=== PATIENT | female | born 1965 | race Caucasian/White ===

== ENCOUNTER 2016-08-19 06:30 | Observation (INO) | payer OTHER ==
--- NOTE | ~2016-08-19 | HP ---
History And Physical [id number] [facility] [place]. [address] NAME: ROSAURA CAMPOS : 67 STATUS : DIS Gertrudis PAT#: [id number] AGE: 50 ADM/REG DATE : 08/19/16 MR#: [id number] REPORT SERV DATE: 08/19/16 DICTATED BY: JAY JAY PEREZ DATE: 08/19/16 REPORT STATUS : Draft TRANSCRIBED BY: MODLaura DATE: 08/19/16 DATE OF ADMISSION: 08/19/2016 PRIMARY CARE PROVIDER: In [place]. CHIEF COMPLAINT: One episode of chest pain upon awakening, lasting less than 1 minute. HISTORY OF PRESENT ILLNESS: This is a pleasant 50-year-old white female with a history of high blood pressure. She also has hypothyroidism that is reportedly well controlled with repletion. She reports she recently had thyroid levels checked and they were within normal limits. 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 She is also relocating houses for this and her mother is in hospice here in [place]. She awakened this morning, and she felt that she awakened from chest pain. She reports that as soon as she realized she had chest pain, it had resolved within 1 minute. She decided to go to the emergency department for evaluation. She has had no recurrence of chest pain. She has never had any chest pain or dyspnea with exertion. She is very active with spinning class, exercise, etc, and she last was in spinning class yesterday with no symptoms. PAST MEDICAL HISTORY: 1. Hypertension. 2. Exercise-induced asthma. 3. Allergies. 4. Hypothyroidism. SOCIAL HISTORY: . 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 Her mother is in hospice in [place] and she is here visiting. Denies any tobacco. Rare glass of wine. Diet sodas occasionally. She walks for exercise and also participates in spinning class multiple times per week with no symptoms. FAMILY HISTORY: Mother with hypertension only. Maternal uncle with stents at the age of 65. ALLERGIES: LEVOFLOXACIN, REACTION UNKNOWN. HOME MEDICATIONS: List reviewed and is as follows: 1. Montelukast 10 mg p.o. daily. 2. Losartan 100 mg p.o. daily. 3. Levothyroxine 137 mcg p.o. daily. 4. Liothyronine 10 mcg p.o. daily. 5. Albuterol two puffs inhaled p.r.n. REVIEW OF SYSTEMS: The patient denies ever having a cardiac evaluation. As above per HPI, all other systems reviewed and negative. PHYSICAL EXAMINATION: History And Physical [address] [address] NAME: ROSAURA CAMPOS : 67 STATUS : DIS Gertrudis PAT#: [id number] AGE: 50 ADM/REG DATE : 08/19/16 MR#: [id number] REPORT SERV DATE: 08/19/16 DICTATED BY: JAY JAY PEREZ DATE: 08/19/16 REPORT STATUS : Draft TRANSCRIBED BY: ARACELI DATE: 08/19/16 VITAL SIGNS: Temperature 98.1, pulse 68, respiratory rate 16, blood pressure 159/99. GENERAL: Well developed, well nourished. In no apparent distress. HEENT: Head normocephalic. No xanthelasma. Sclera clear, anicteric. Moist mucous membranes without pallor. No lymphadenopathy. No deficits noted. NECK: Trachea midline. Supple. No thyromegaly, JVD, or bruits. RESPIRATORY: Unlabored respirations. Breath sounds clear bilaterally to posterior auscultation. No wheezes, rhonchi or crackles. CARDIOVASCULAR: Regular rate and rhythm. No murmur, rub, or gallop appreciated. No chest wall tenderness to palpation. ABDOMEN: Soft, nontender, and nondistended. Active bowel sounds auscultated x4 quadrants. No organomegaly and no masses. No aortic bruit. EXTREMITIES: DP/PT and radial pulses 2+ bilaterally. No clubbing, cyanosis, or edema. SKIN: Warm, dry, intact. No rash. Normal turgor. MUSCULOSKELETAL: Moves all extremities in bed without difficulty. NEURO/PSYCH: Alert and oriented x3 with no acute distress. Affect appropriate to current situation. LABORATORY DATA: BMP: Sodium 143, potassium 3.7, creatinine 0.88, glucose 97, magnesium 2.3. CBC: White blood cell count 5.5, hemoglobin 13.5, hematocrit 40.1, platelets 251. Troponin 0.05 x2. D-dimer is 0.36. TSH 2.66. STUDIES: 1. Chest x-ray, no acute processes. 2. EKG, personally interpreted, normal sinus rhythm, with no ischemia. 3. Telemetry, sinus rhythm. ASSESSMENT AND PLAN: 1. Substernal chest pain. This lasted less than 1 minute in duration this morning and occurred at rest. This is atypical in feature. No exertional component. Troponin 0.05 x2. EKG was benign. I performed a stress echocardiogram today given cardiac risk factors of high blood pressure. This was considered to be a low-risk vasodilator stress test and there was no ischemia. Therefore, the patient will be discharged to home with followup with her primary care provider in [place] in one to two weeks. 2. Hypertension. I advised her to monitor her blood pressure daily, record, and take it to her primary care provider. 3. Situational stress. This is noted given the patient's mother in hospice and moving and other situational issues. The patient is encouraged to continue her positive stress reduction-techniques including exercise. 4. Hypothyroidism. This is reportedly normal. TSH here was fine. Therefore, she will be continued on current medications. She will be discharged to home given this low-risk stress test. MARIE/ARACELI Jay Jay [employer], History And Physical [address] [address] NAME: ROSAURA CAMPOS : 67 STATUS : DIS Gertrudis PAT#: [id number] AGE: 50 ADM/REG DATE : 08/19/16 MR#: [id number] REPORT SERV DATE: 08/19/16 DICTATED BY: JAY JAY PEREZ DATE: 08/19/16 REPORT STATUS : Draft TRANSCRIBED BY: MODLaura DATE: 08/19/16 MATH AND SCIENCES DEPARTMENT CHAIR / [id number] CC: Swetha Jones, MSN, GATE SUPERVISOR-BC
[~2016-08-19 06:30] MED LIST: SINGULAIR1 PO
[2016-08-19] MEDS ORDERED: COZAAR100 MG PO (06:31)
[2016-08-19] MEDS ORDERED: SYNTHROID137 MCG PO (06:32)
[2016-08-19] MEDS ORDERED: CYTO5 PO (06:33)
[2016-08-19] MEDS ORDERED: PROAIR HFA INH (06:34)
[2016-08-19 06:35] LABS: BASOPHILS 0.7 %; BASOPHILS ABSOLUTE 0.04 10/3/uL (0.0-0.16); EOSINOPHILS ABSOLUTE 0.11 10/3/uL (0.0-0.53); ER CBC TAT 0 Hrs 09 Mins; HEMATOCRIT 40.1 % (36.0-48.0); HEMOGLOBIN 13.5 g/dL (12.0-16.0); IMMATURE GRANULOCYTES 0.2 %; IMMATURE GRANULOCYTES ABSOLUTE 0.01 10/3/uL (0.0-0.11); LYMPHOCYTES 38.3 %; LYMPHOCYTES ABSOLUTE 2.11 10/3/uL (0.67-4.30); MEAN CORPUS HGB CONC 33.7 g/dL (32.0-36.0); MEAN CORPUSCULAR HEMOGLOB 30.6 pg (26.0-34.0); MEAN CORPUSCULAR VOLUME 90.9 fL (80-100); MEAN PLATELET VOLUME 10.9 fL (9.2-13.0); MONOCYTES 5.8 %; MONOCYTES ABSOLUTE 0.32 10/3/uL (0.21-1.20); NEUTROPHILS ABSOLUTE 2.92 10/3/uL (2.02-8.40); PLATELET COUNT 251 10/3/uL (150-400); RED CELL COUNT 4.41 10/6/uL (4.0-5.6); WHITE BLOOD CELLS 5.5 10/3/uL (4.5-10.5)
[2016-08-19 06:38] LABS: MANUAL DIFF NO %
[2016-08-19 06:42] LABS: PARTIAL THROMBO TIME 29.5 SEC (22.5-37.2); PROTIME (NOT ORD) 12.6 SEC (12.0-14.5)
[2016-08-19 06:53] LABS: BUN (BLOOD UREA NITROGEN) 13 MG/DL (6-23); CALCIUM, SERUM 8.9 MG/DL (8.5-10.4); CHLORIDE, SERUM 106 MMOL/L (96-112); CO2 (CARBON DIOXIDE) 26 MMOL/L (24-34); CREATININE 0.88 MG/DL (0.55-1.02); GFR AFRICAN AMERICAN 89 ML/MIN (>=60); GFR NON AFRICAN AMERICAN 77 ML/MIN (>=60); GLUCOSE, SERUM 97 MG/DL (60-99); POTASSIUM, SERUM 3.7 MMOL/L (3.5-5.3); SODIUM, SERUM 143 MMOL/L (135-148)
[2016-08-19 06:55] LABS: CHEST PAIN PROFILE TAT 0 Hrs 29 Mins; TROPONIN I 0.05 NG/ML (<0.05)
[2016-08-19 07:32] LABS: D-DIMER QUANTITATIVE 0.36 ug/mLFEU (< 0.50)
== END 2016-08-19 15:56 | disposition home or self-care (01) ==
LOC: ER 06:30 → CDU1 07:22 → CDU2 07:45
PROVIDERS: Nurse Practitioner
DX: R07.2 Precordial pain (principal); I10 Essential (primary) hypertension; E03.9 Hypothyroidism, unspecified; J45.990 Exercise induced bronchospasm; Z82.49 Family history of ischemic heart disease and other diseases of the circulatory system; Z88.8 Allergy status to other drugs, medicaments and biological substances; Z79.899 Other long term (current) drug therapy
CPT/HCPCS: 71010; 80048; 83735; 84443; 84484; 85025; 85379; 85610; 85730; 93005; 93017; 99285; A9270-GY; C8928; G0378